=== PATIENT | female | born 1980 | race Caucasian/White ===

== ENCOUNTER 2017-04-24 15:07 | Emergency (ER) | payer OTHER ==
[2017-04-24] MEDS ORDERED: Zofran 4 MG/2 ML VIAL IV ONE (15:33)
[2017-04-24] MEDS ORDERED: Pepcid 20 MG VIAL IV ONE ×2 (15:33→15:42)
[2017-04-24] MEDS ORDERED: TORAdol 30 mg Injection IV ONE (15:33)
--- NOTE | 2017-04-24 15:33 | ERPHSYRPT ---
- History of Present Illness Time Seen by Provider: 04/24/17 15:29 Historian: patient Exam Limitations: no limitations Patient Subjective Stated Complaint: PT REPORTS RIGHT SIDED FLANK PAIN BEGINNING 3 DAYS AGO-REPROTS NAUSEA BUT DENIES VOMITING OR DIARRHEA-REPORTS FEVER OF 102 AT HOME-DENIES DIFFICULTY WITH URIANTION Triage Nursing Assessment: PT PINK WARM ET [id number] SOFT ET TENDER TO PALP- BOWEL SOUNDS PRESENT-NO REBOUND TENDERNESS NOTED AT THIS TIME-RESP EASY ET NONLABORED-PT AMBULATORY WITH NO DIFFICUTLY Physician History: The patient is a morbidly obese 36-year-old female who complains of worsening right lower quadrant abdominal pain for 3 days. She has nausea but no vomiting. She has no problems with urination. She's had a fever of 102. Her past medical history is significant for morbid obesity, chronic back pain, asthma, anxiety, and depression. Her surgical history is significant for cholecystectomy, , plantar fasciitis surgery, TL, and tonsillectomy. Timing/Duration: day(s) (3) Activities at Onset: none Quality: aching Abdominal Pain Onset Location: RLQ Pain Radiation: no radiation Severity of Pain-Max: moderate Severity of Pain-Current: moderate Modifying Factors: Improves With: analgesics, movement Associated Symptoms: nausea, No vomiting Previous symptoms: no prior history Allergies/Adverse Reactions: hydrocodone bitartrate [From Vicodin] Allergy (Intermediate, Verified 04/24/17 15:19) Rash venom-honey bee [bee venom (honey bee)] Allergy (Verified 04/24/17 15:19) Home Medications: Albuterol 8 gm Mdi Hfa [Ventolin Hfa MDI] 0 puff IH .PRN PRN 12/15/12 [ History] Oxycodone HCl/Acetaminophen [Percocet 10-325 mg Tablet] 1 each PO TID 12/15/12 [ History] Albuterol 2.5 mg/3 ml Neb [Proventil 2.5 mg/3 ml Neb] 2.5 mg IH .PRN 07/24 [History] Alprazolam 1 mg [Xanax 1 mg] 1 mg PO TID 07/24/16 [History] Bupropion HCl 150 mg Sr [Wellbutrin SR 150 MG] 150 mg PO BID 07/24/16 [ History] Cyclobenzaprine HCl 10 mg [Cyclobenzaprine 10 MG] 10 mg PO DAILY 07/24/16 [History] Ibuprofen 800 mg PO TID 07/24/16 [History] Loratadine 10 mg [Claritin 10 mg] 10 mg PO DAILY 07/24/16 [History] Hx Tetanus, Diphtheria Vaccination/Date Given: Yes Hx Influenza Vaccination/Date Given: No Hx Pneumococcal Vaccination/Date Given: No Immunizations Up to Date: Yes - Review of Systems Constitutional: No Fever, No Chills Eyes: No Symptoms Ears, Nose, & Throat: No Symptoms Respiratory: No Cough, No Dyspnea Cardiac: No Chest Pain, No Edema, No Syncope Abdominal/Gastrointestinal: Abdominal Pain, Nausea, No Vomiting, No Diarrhea Genitourinary Symptoms: No Dysuria Musculoskeletal: No Back Pain, No Neck Pain Skin: No Rash Neurological: No Symptoms Psychological: No Symptoms Endocrine: No Symptoms Hematologic/Lymphatic: No Symptoms Immunological/Allergic: No Symptoms All Other Systems: Reviewed and Negative - Past Medical History Pertinent Past Medical History: Yes Neurological History: No Pertinent History ENT History: No Pertinent History Cardiac History: Other Respiratory History: Asthma Endocrine Medical History: No Pertinent History Musculoskeletal History: Other GI Medical History: No Pertinent History History: No Pertinent History Psycho-Social History: Anxiety Female Reproductive Disorders: Other Other Medical History: irregular heart rate,back pain,sinus allergies, - Past Surgical History Past Surgical History: Yes Neuro Surgical History: No Pertinent History Cardiac: No Pertinent History Respiratory: No Pertinent History Gastrointestinal: Cholecystectomy Genitourinary: No Pertinent History Musculoskeletal: No Pertinent History Female Surgical History: Section Other Surgical History: CARPAL TUNNEL, FOOT SURG BILA, TUBES IN EARS,.TONSILS - Social History Smoking Status: Current every day smoker How long have you smoked: 10 years Exposure to second hand smoke: Yes Drug Use: none Patient Lives Alone: No - Female History Hx Last Menstrual Period: 3 WKS AGO Hx Now: No - Nursing Vital Signs Nursing Vital Signs: Initial Vital Signs Temperature 97.5 F 04/24/17 15:13 Pulse Rate 103 H 04/24/17 15:13 Respiratory Rate 20 04/24/17 15:13 Blood Pressure 125/78 04/24/17 15:13 O2 Sat by Pulse Oximetry 96 04/24/17 15:13 Pain Scale Pain Intensity 6 - Physical Exam General Appearance: no apparent distress, alert Eye Exam: PERRL/EOMI, eyes nml inspection Ears, Nose, Throat Exam: normal ENT inspection, pharynx normal, moist mucous membranes Neck Exam: normal inspection, non-tender, supple, full range of motion Respiratory Exam: normal breath sounds, lungs clear, No respiratory distress Cardiovascular Exam: regular rate/rhythm, normal heart sounds Gastrointestinal/Abdomen Exam: tenderness (RLQ), No rebound Pelvic Exam: not done Rectal Exam: not done Back Exam: normal inspection, normal range of motion, No CVA tenderness, No vertebral tenderness Extremity Exam: normal inspection, normal range of motion, pelvis stable Neurologic Exam: alert, oriented x 3, cooperative, normal mood/affect, nml cerebellar function, sensation nml, No motor deficits Skin Exam: normal color, warm, dry Lymphatic Exam: adenopathy SpO2 Interpretation: normal SpO2: 96 Oxygen Delivery: Room Air - Course EKG Interpreted by Me: RATE, Other (paced rhythm) Ordered Tests: Active Orders 24 hr Category Date Time Status IV Insertion STAT Care 04/24/17 15:33 Active CBC W DIFF Stat Lab 04/24/17 15:40 Completed CMP Stat Lab 04/24/17 15:40 Completed CULTURE,URINE Stat Lab 04/24/17 15:40 Received HCG QUALITATIVE,SERUM Stat Lab 04/24/17 15:40 Completed LIPASE Stat Lab 04/24/17 15:40 Completed Lactic Acid Stat Lab 04/24/17 15:33 Completed UA W/ MICROSCOPIC Stat Lab 04/24/17 15:40 Completed Medication Summary Discontinued Medications Generic Name Dose Route Start Last Admin Trade Name Terrance PRN Reason Stop Dose Admin Famotidine 20 mg 04/24/17 15:33 04/24/17 15:45 Pepcid 20 Mg Vial IV 04/24/17 15:34 20 mg STAT ONE Administration Famotidine Confirm 04/24/17 15:42 Pepcid 20 Mg Vial Administered 04/24/17 15:43 Dose 20 mg IV .STK-MED ONE Ketorolac Tromethamine 30 mg 04/24/17 15:33 04/24/17 15:47 Toradol 30 Mg Injection IV 04/24/17 15:34 Not Given STAT ONE Ketorolac Tromethamine Confirm 04/24/17 15:42 Toradol 30 Mg Injection Administered 04/24/17 15:43 Dose 30 mg .ROUTE .STK-MED ONE Ondansetron HCl 4 mg 04/24/17 15:33 04/24/17 15:43 Zofran 4 Mg/2 Ml Vial IV 04/24/17 15:34 4 mg STAT ONE Administration Ondansetron HCl Confirm 04/24/17 15:42 Zofran 4 Mg/2 Ml Vial Administered 04/24/17 15:43 Dose 4 mg .ROUTE .STK-MED ONE Lab/Rad Data: Laboratory Result Diagrams 04/24/17 15:40 04/24/17 15:40 Laboratory Results 04/24/17 04/24/17 04/24/17 Range/Units 15:40 15:40 15:40 WBC (4.0-10.5) K/mm3 RBC (4.1-5.4) M/mm3 Hgb (12.0-16.0) gm/dl Hct (35-47) % MCV (78-100) fl MCH (26-32) pg MCHC (32-36) g/dl RDW (11.5-14.0) % Plt Count (150-450) K/mm3 MPV (6-9.5) fl Gran % (36.0-66.0) % Lymphocytes % (24.0-44.0) % Monocytes % (0.0-12.0) % Eosinophils % (0.00-5.0) % Basophils % (0.0-0.4) % Basophils # (0-0.4) Sodium 140 (136-145) mEq/L Potassium 3.3 L (3.5-5.1) mEq/L Chloride 105 (98-107) mEq/L Carbon Dioxide 25.3 (21-32) mEq/L Anion Gap 13.1 (5-15) MEQ/L BUN 10 (9-20) mg/dL Creatinine 0.75 (0.55-1.30) mg/dl Estimated GFR > 60 ML/MIN Glucose 95 (70-110) MG/DL Lactic Acid (0.4-2.0) Calcium 9.2 (8.5-10.1) mg/dL Total Bilirubin 0.30 (0.2-1.0) mg/dL AST 18 (15-37) U/L ALT 27 (12-78) U/L Alkaline Phosphatase 65 (46-116) U/L Serum Total Protein 7.4 (6.4-8.2) gm/dL Albumin 3.9 (3.4-5.0) g/dL Lipase 89 (73-393) U/L Serum , Qual NEGATIVE (Negative) Ur Collection Type VOID Urine Color YELLOW (YELLOW) Urine Appearance HAZY (CLEAR) Urine pH 5.0 (5-6) Ur Specific [place] 1.030 (1.005-1.025) Urine Protein TRACE (Negative) Urine Ketones SMALL (NEGATIVE) Urine Blood 5-10 (0-5) Yousif/ul Urine Nitrite NEGATIVE (NEGATIVE) Urine Bilirubin NEGATIVE (NEGATIVE) Urine Urobilinogen NORMAL (0-1) mg/dL Ur Leukocyte Esterase TRACE (NEGATIVE) Urine Microscopic RBC 0-2 (0-2) /HPF Urine Microscopic WBC 5-10 (0-5) /HPF Ur Epithelial Cells PACKED (FEW) /HPF Urine Bacteria MODERATE (NEGATIVE) /HPF Urine Culture Reflexed YES (NO) Urine Glucose NEGATIVE (NEGATIVE) mg/dL Specimen Received 04/24/17 1600 04/24/17 04/24/17 Range/Units 15:40 15:33 WBC 11.1 H (4.0-10.5) K/mm3 RBC 5.42 H (4.1-5.4) M/mm3 Hgb 14.4 (12.0-16.0) gm/dl Hct 44.0 (35-47) % MCV 81.2 (78-100) fl MCH 26.5 (26-32) pg MCHC 32.7 (32-36) g/dl RDW 14.4 H (11.5-14.0) % Plt Count 421 (150-450) K/mm3 MPV 10.0 H (6-9.5) fl Gran % 67.9 H (36.0-66.0) % Lymphocytes % 23.8 L (24.0-44.0) % Monocytes % 6.0 (0.0-12.0) % Eosinophils % 2.0 (0.00-5.0) % Basophils % 0.3 (0.0-0.4) % Basophils # 0.03 (0-0.4) Sodium (136-145) mEq/L Potassium (3.5-5.1) mEq/L Chloride (98-107) mEq/L Carbon Dioxide (21-32) mEq/L Anion Gap (5-15) MEQ/L BUN (9-20) mg/dL Creatinine (0.55-1.30) mg/dl Estimated GFR ML/MIN Glucose (70-110) MG/DL Lactic Acid 1.1 (0.4-2.0) Calcium (8.5-10.1) mg/dL Total Bilirubin (0.2-1.0) mg/dL AST (15-37) U/L ALT (12-78) U/L Alkaline Phosphatase (46-116) U/L Serum Total Protein (6.4-8.2) gm/dL Albumin (3.4-5.0) g/dL Lipase (73-393) U/L Serum , Qual (Negative) Ur Collection Type Urine Color (YELLOW) Urine Appearance (CLEAR) Urine pH (5-6) Ur Specific [place] (1.005-1.025) Urine Protein (Negative) Urine Ketones (NEGATIVE) Urine Blood (0-5) Yousif/ul Urine Nitrite (NEGATIVE) Urine Bilirubin (NEGATIVE) Urine Urobilinogen (0-1) mg/dL Ur Leukocyte Esterase (NEGATIVE) Urine Microscopic RBC (0-2) /HPF Urine Microscopic WBC (0-5) /HPF Ur Epithelial Cells (FEW) /HPF Urine Bacteria (NEGATIVE) /HPF Urine Culture Reflexed (NO) Urine Glucose (NEGATIVE) mg/dL Specimen Received - Progress Progress: improved Counseled pt/family regarding: lab results, diagnosis, need for follow-up, rad results - Departure Time of Disposition: 16:49 Departure Disposition: Home Clinical Impression: UTI (urinary tract infection), Hypokalemia Condition: Stable Critical Care Time: No Referrals: MARKUS LUJAN [Primary Care Provider] - Additional Instructions: You have a UTI. You also have slightly low serum potassium. You were given Pepcid 20 mg, Toradol 30 mg, Zofran 4 mg, and Rocephin 1 g by IV. You were given potassium 20 mEq orally. Continue to take cephalexin 500 mg 4 times a day for 7 days. Follow-up as needed. Prescriptions: Cephalexin Mh 500 mg [Keflex 500 mg] 1 cap PO QID #28 capsule
[2017-04-24] MEDS ORDERED: TORAdol 30 mg Injection ONE (15:42)
[2017-04-24] MEDS ORDERED: Zofran 4 MG/2 ML VIAL ONE (15:42)
[2017-04-24 15:57] LABS: BASOPHIL % 0.3 % (0.0-0.4); Basophil (Absolute #) 0.03 (0-0.4); Eosinophil (Absolute #) 0.22 (0-0.5); Granulocyte Absolute (ANC) 7.52 (1.4-6.9); Granulocytes % 67.9 % (36.0-66.0); Hemoglobin 14.4 gm/dl (12.0-16.0); Lymphocyte (Absolute #) 2.63 (1.0-4.6); Lymphocytes % 23.8 % (24.0-44.0); Mean Cell Volume 81.2 fl (78-100); Mean Corpuscular Hgb Concent. 32.7 g/dl (32-36); Monocyte (Absolute #) 0.66 (0.0-1.3); Platelet Count 421 K/mm3 (150-450); Red Blood Count 5.42 M/mm3 (4.1-5.4); Red Cell Distribution Width 14.4 % (11.5-14.0); White Blood Count 11.1 K/mm3 (4.0-10.5)
[2017-04-24 16:12] LABS: Mean Corpuscular Hemoglobin 26.5 pg (26-32)
[2017-04-24 16:17] LABS: Appearance HAZY (CLEAR); Bilirubin NEGATIVE (NEGATIVE); Glucose NEGATIVE (NEGATIVE); Ketones SMALL (NEGATIVE); Leukocyte Esterase TRACE (NEGATIVE); Nitrite NEGATIVE (NEGATIVE); Protein,Urine Dip TRACE (Negative); Urobilinogen NORMAL mg/dL (0-1)
[2017-04-24 16:20] LABS: ALBUMIN 3.9 g/dL (3.4-5.0); ALKALINE PHOSPHATASE 65 U/L (46-116); ANION GAP 13.1 MEQ/L (5-15); BLOOD UREA NITROGEN 10 mg/dL (9-20); CHLORIDE 105 mEq/L (98-107); Calcium 9.2 mg/dL (8.5-10.1); Carbon Dioxide 25.3 mEq/L (21-32); Creatinine 1 0.75 mg/dl (0.55-1.30); EST GLOMERULAR FILTRATION RATE > 60 ML/MIN; Glucose 95 MG/DL (70-110); LIPASE 89 U/L (73-393); Potassium 3.3 mEq/L (3.5-5.1); SGOT/AST 18 U/L (15-37); SGPT/ALT 27 U/L (12-78); SODIUM 140 mEq/L (136-145); Total Protein 7.4 gm/dL (6.4-8.2)
[2017-04-24 16:27] LABS: Bacteria MODERATE /HPF (NEGATIVE); Epithelial Cells PACKED /HPF (FEW)
[2017-04-24] MEDS ORDERED: Klor Con 10 MEQ PO ONE ×2 (16:47→16:53)
[2017-04-24] MEDS ORDERED: ROCEPHIN 1 Gm-D5w 50 ml Bag** 1 G/50 ML IVPB IV STA (16:49)
[2017-04-24] MEDS ORDERED: ROCEPHIN 1 Gm-D5w 50 ml Bag** 1 G/50 ML IVPB IV ONE (16:53)
[2017-04-24 17:06] VITALS: BP 107/65; PULSE 82; O2SAT 99
== END 2017-04-24 17:54 | disposition home or self-care (01) ==
LOC: ED 15:07
DX: N39.0 Urinary tract infection, site not specified (principal); E87.6 Hypokalemia; F41.9 Anxiety disorder, unspecified; Z72.0 Tobacco use; Z79.899 Other long term (current) drug therapy; J45.909 Unspecified asthma, uncomplicated
CPT/HCPCS: 36000; 36415; 80053; 81000; 83605; 83690; 84703; 85025; 87086; 99284; J0696; J1885; J2405; A9270-GY

== ENCOUNTER 2017-05-12 17:34 | Emergency (ER) | payer OTHER ==
--- NOTE | 2017-05-12 18:03 | ERPHSYRPT ---
- History of Present Illness Historian: patient Exam Limitations: no limitations Patient Subjective Stated Complaint: Pt states "I am having lower right abdominal pain and it started a couple of weeks ago when I was diagnosed with a UTI. Keli Quan told me I need to come over to make sure I do not have appendicitis." Triage Nursing Assessment: Pt alert and oriented X 3, skin pwd. PT ambulates with an upright steady gait, able to speak in clear full sentences. right lower quadrant tender. Timing/Duration: week(s) (3), gradual onset, worse Activities at Onset: none Quality: sharpness Abdominal Pain Onset Location: RLQ Pain Radiation: no radiation Severity of Pain-Max: moderate Severity of Pain-Current: moderate Modifying Factors: Improves With: nothing Associated Symptoms: denies symptoms Previous symptoms: no prior history Hx Tetanus, Diphtheria Vaccination/Date Given: No Hx Influenza Vaccination/Date Given: No Hx Pneumococcal Vaccination/Date Given: No Immunizations Up to Date: Yes <NELLY MORA - Last Filed: 05/12/17 19:10> <FLACA RAHMAN - Last Filed: 05/12/17 20:11> - History of Present Illness Time Seen by Provider: 05/12/17 17:57 Physician History: The patient is a 36-year-old morbidly obese female who is sent over from [facility] where she was evaluated today for right lower quadrant pain. She was told to [facility] that she may have appendicitis and to go to the ER. She's had the abdominal pain on the right lower quadrant for about 3 weeks. I saw the patient on April 24 for the same complaint and at that time her urine had moderate white cells and bacteria. She was given Rocephin in the ER and a prescription for cephalexin. Today her right lower quadrant had increased so she went in to see [facility]. She denies nausea, vomiting, or diarrhea. She denies fever or chills. LMP was 2 days ago. Her past medical history is significant for asthma, anxiety, depression, morbid obesity, chronic back pain, cholecystectomy, ear tubes, tonsillectomy, and foot surgery. (NELLY MORA) Allergies/Adverse Reactions: hydrocodone bitartrate [From Vicodin] Allergy (Intermediate, Verified 04/24/17 15:19) Rash venom-honey bee [bee venom (honey bee)] Allergy (Verified 04/24/17 15:19) Home Medications: Albuterol 8 gm Mdi Hfa [Ventolin Hfa MDI] 0 puff IH .PRN PRN 12/15/12 [ History] Oxycodone HCl/Acetaminophen [Percocet 10-325 mg Tablet] 1 each PO TID 12/15/12 [ History] Albuterol 2.5 mg/3 ml Neb [Proventil 2.5 mg/3 ml Neb] 2.5 mg IH .PRN 07/24 [History] Alprazolam 1 mg [Xanax 1 mg] 1 mg PO TID 07/24/16 [History] Bupropion HCl 150 mg Sr [Wellbutrin SR 150 MG] 150 mg PO BID 07/24/16 [ History] Cyclobenzaprine HCl 10 mg [Cyclobenzaprine 10 MG] 10 mg PO DAILY 07/24/16 [History] Ibuprofen 800 mg PO TID 07/24/16 [History] Loratadine 10 mg [Claritin 10 mg] 10 mg PO DAILY 07/24/16 [History] - Review of Systems Constitutional: No Fever, No Chills Eyes: No Symptoms Ears, Nose, & Throat: No Symptoms Respiratory: No Cough, No Dyspnea Cardiac: No Chest Pain, No Edema, No Syncope Abdominal/Gastrointestinal: Abdominal Pain Genitourinary Symptoms: No Dysuria Musculoskeletal: No Back Pain, No Neck Pain Skin: No Rash Neurological: No Dizziness, No Focal Weakness, No Sensory Changes Psychological: No Symptoms Endocrine: No Symptoms Hematologic/Lymphatic: No Symptoms Immunological/Allergic: No Symptoms All Other Systems: Reviewed and Negative <NELLY MORA - Last Filed: 05/12/17 19:10> - Past Medical History Pertinent Past Medical History: Yes Neurological History: No Pertinent History ENT History: No Pertinent History Cardiac History: Other Respiratory History: Asthma Endocrine Medical History: No Pertinent History Musculoskeletal History: Other GI Medical History: No Pertinent History History: No Pertinent History Psycho-Social History: Anxiety Female Reproductive Disorders: Other Other Medical History: irregular heart rate,back pain,sinus allergies, - Past Surgical History Past Surgical History: Yes Neuro Surgical History: No Pertinent History Cardiac: No Pertinent History Respiratory: No Pertinent History Gastrointestinal: Cholecystectomy Genitourinary: No Pertinent History Musculoskeletal: No Pertinent History Female Surgical History: Section Other Surgical History: CARPAL TUNNEL, FOOT SURG BILA, TUBES IN EARS,.TONSILS - Social History Smoking Status: Current every day smoker How long have you smoked: 10 years Exposure to second hand smoke: Yes Drug Use: none Patient Lives Alone: No - Female History Hx Last Menstrual Period: 05/04/2017 Hx Now: No <NELLY MORA - Last Filed: 05/12/17 19:10> - Physical Exam General Appearance: no apparent distress (Pt is smiling and pleasant when I enter the room.), alert Eye Exam: PERRL/EOMI, eyes nml inspection Ears, Nose, Throat Exam: normal ENT inspection, pharynx normal, moist mucous membranes Neck Exam: normal inspection, non-tender, supple, full range of motion Respiratory Exam: normal breath sounds, lungs clear, No respiratory distress Cardiovascular Exam: regular rate/rhythm, normal heart sounds Gastrointestinal/Abdomen Exam: tenderness (Moderate pain upon palpation of RLQ. Psoas sign.), other (obese) Pelvic Exam: not done Rectal Exam: not done Back Exam: normal inspection, normal range of motion, No CVA tenderness, No vertebral tenderness Extremity Exam: normal inspection, normal range of motion, pelvis stable Neurologic Exam: alert, oriented x 3, cooperative, normal mood/affect, nml cerebellar function, sensation nml, No motor deficits Skin Exam: normal color, warm, dry SpO2 Interpretation: normal SpO2: 98 Oxygen Delivery: Room Air <NELLY MORA - Last Filed: 05/12/17 19:10> - Nursing Vital Signs Nursing Vital Signs: Initial Vital Signs Temperature 97.9 F 05/12/17 17:39 Pulse Rate 99 H 05/12/17 17:39 Respiratory Rate 18 05/12/17 17:39 Blood Pressure 128/81 05/12/17 17:39 O2 Sat by Pulse Oximetry 98 05/12/17 17:39 Pain Scale Pain Intensity 4 - Course Nursing assessment & vital signs reviewed: Yes <FLACA RAHMAN - Last Filed: 05/12/17 20:11> Ordered Tests: Active Orders 24 hr Category Date Time Status IV Insertion STAT Care 05/12/17 18:12 Active ABDOMEN AND PELVIS W/0 CONTRAS [CT] Stat Exams 05/12/17 18:13 Taken CBC W DIFF Stat Lab 05/12/17 18:05 Completed CMP Stat Lab 05/12/17 18:05 Completed HCG QUALITATIVE,SERUM Stat Lab 05/12/17 18:05 Completed LIPASE Stat Lab 05/12/17 18:05 Completed Lactic Acid Stat Lab 05/12/17 18:35 Results UA W/RFX UR CULTURE Stat Lab 05/12/17 18:50 Completed Medication Summary Generic Name Dose Route Start Last Admin Trade Name Terrance PRN Reason Stop Dose Admin Amoxicillin/Clavulanate Potassium 500 mg 05/12/17 20:03 Augmentin 500-125 Tablet PO 05/12/17 20:04 STAT ONE Discontinued Medications Generic Name Dose Route Start Last Admin Trade Name Fredelmar PRN Reason Stop Dose Admin Sodium Chloride 1,000 mls @ 999 mls/hr 05/12/17 18:14 05/12/17 18:25 Sodium Chloride 0.9% 1000 Ml IV 05/12/17 19:14 999 mls/hr .Q1H1M STA Administration Sodium Chloride Confirm 05/12/17 18:24 Sodium Chloride 0.9% 1000 Ml Administered 05/12/17 18:25 Dose 1,000 mls @ ud .ROUTE .STK-MED ONE Lab/Rad Data: Laboratory Result Diagrams 05/12/17 18:05 05/12/17 18:05 Laboratory Results 05/12/17 05/12/17 05/12/17 Range/Units 18:50 18:35 18:05 WBC (4.0-10.5) K/mm3 RBC (4.1-5.4) M/mm3 Hgb (12.0-16.0) gm/dl Hct (35-47) % MCV (78-100) fl MCH (26-32) pg MCHC (32-36) g/dl RDW (11.5-14.0) % Plt Count (150-450) K/mm3 MPV (6-9.5) fl Gran % (36.0-66.0) % Lymphocytes % (24.0-44.0) % Monocytes % (0.0-12.0) % Eosinophils % (0.00-5.0) % Basophils % (0.0-0.4) % Basophils # (0-0.4) Sodium (136-145) mEq/L Potassium (3.5-5.1) mEq/L Chloride (98-107) mEq/L Carbon Dioxide (21-32) mEq/L Anion Gap (5-15) MEQ/L BUN (9-20) mg/dL Creatinine (0.55-1.30) mg/dl Estimated GFR ML/MIN Glucose (70-110) MG/DL Lactic Acid 2.0 (0.4-2.0) Calcium (8.5-10.1) mg/dL Total Bilirubin (0.2-1.0) mg/dL AST (15-37) U/L ALT (12-78) U/L Alkaline Phosphatase (46-116) U/L Serum Total Protein (6.4-8.2) gm/dL Albumin (3.4-5.0) g/dL Lipase (73-393) U/L Serum , Qual NEGATIVE (Negative) Ur Collection Type CCMS Urine Color YELLOW (YELLOW) Urine Appearance CLEAR (CLEAR) Urine pH 5.0 (5-6) Ur Specific [place] 1.015 (1.005-1.025) Urine Protein NEGATIVE (Negative) Urine Ketones NEGATIVE (NEGATIVE) Urine Blood NEGATIVE (0-5) Yousif/ul Urine Nitrite NEGATIVE (NEGATIVE) Urine Bilirubin NEGATIVE (NEGATIVE) Urine Urobilinogen NORMAL (0-1) mg/dL Ur Leukocyte Esterase NEGATIVE (NEGATIVE) Urine Culture Reflexed NO (NO) Urine Glucose NEGATIVE (NEGATIVE) mg/dL Specimen Received 05-12-17192705/12/17 05/12/17 Range/Units 18:05 18:05 WBC 11.1 H (4.0-10.5) K/mm3 RBC 5.26 (4.1-5.4) M/mm3 Hgb 13.9 (12.0-16.0) gm/dl Hct 42.9 (35-47) % MCV 81.6 (78-100) fl MCH 26.4 (26-32) pg MCHC 32.4 (32-36) g/dl RDW 14.1 H (11.5-14.0) % Plt Count 401 (150-450) K/mm3 MPV 10.6 H (6-9.5) fl Gran % 64.5 (36.0-66.0) % Lymphocytes % 27.2 (24.0-44.0) % Monocytes % 4.9 (0.0-12.0) % Eosinophils % 3.1 (0.00-5.0) % Basophils % 0.3 (0.0-0.4) % Basophils # 0.03 (0-0.4) Sodium 142 (136-145) mEq/L Potassium 3.3 L (3.5-5.1) mEq/L Chloride 105 (98-107) mEq/L Carbon Dioxide 24.4 (21-32) mEq/L Anion Gap 15.4 H (5-15) MEQ/L BUN 9 (9-20) mg/dL Creatinine 0.71 (0.55-1.30) mg/dl Estimated GFR > 60 ML/MIN Glucose 103 (70-110) MG/DL Lactic Acid (0.4-2.0) Calcium 9.0 (8.5-10.1) mg/dL Total Bilirubin 0.20 (0.2-1.0) mg/dL AST 18 (15-37) U/L ALT 23 (12-78) U/L Alkaline Phosphatase 56 (46-116) U/L Serum Total Protein 7.3 (6.4-8.2) gm/dL Albumin 3.9 (3.4-5.0) g/dL Lipase 110 (73-393) U/L Serum , Qual (Negative) Ur Collection Type Urine Color (YELLOW) Urine Appearance (CLEAR) Urine pH (5-6) Ur Specific [place] (1.005-1.025) Urine Protein (Negative) Urine Ketones (NEGATIVE) Urine Blood (0-5) Yousif/ul Urine Nitrite (NEGATIVE) Urine Bilirubin (NEGATIVE) Urine Urobilinogen (0-1) mg/dL Ur Leukocyte Esterase (NEGATIVE) Urine Culture Reflexed (NO) Urine Glucose (NEGATIVE) mg/dL Specimen Received <NELLY MORA - Last Filed: 05/12/17 19:10> - Progress Progress: improved <FLACA RAHMAN - Last Filed: 05/12/17 20:11> - Progress Progress Note: 05/12/17 19:10 Pt care discussed and care transferred to Dr Rahman at 19:00. (NELLY MORA) 05/12/17 20:04 Please see dictation by Dr. Mora This is a 36-year-old white female initially seen by Dr. Mora patient was seen [address] Mora with complaint of abdominal pain diagnosed with a UTI placed on Keflex. She states presented to her of family doctor this afternoon with same complaint. Patient had a clean urine and was told to present to the emergency room Patient states she has right lower quadrant abdominal pain she has no vomiting no diarrhea no fevers Patient's labs show a white count of 11.1 hemoglobin 13.9 hematocrit 42.9 chemistry is essentially normal potassium is 3.3 anion gap is 15.4 urinalysis is unremarkable patient has had a CT of her abdomen which shows a normal appendix, mildly scattered colonic diverticulosis and mild scattered fecal stasis remaining abdomen and pelvis are negative. On physical examination HEENT within normal limits. Neck is supple full range of motion. Lungs are clear. Heart regular rate and rhythm without murmur. Abdomen soft mild right lower quadrant tenderness nondistended positive bowel sounds. No rebound no masses. Extremities full range of motion pulse equal symmetrical 2 over 4. Neuro cranial nerves II through XII are intact DTRs symmetrical 2 over 4 Genevieve Coma Scale is 15. Impression abdominal pain. 2 diverticulosis. 3 mild [address] Plan Will place patient on Augmentin 500 mg orally 3 times a day for 7 days. Will have patient go to clear fluids 24-48 hours if abdominal pain. Patient to follow-up with Isaura Quan Tylenol every 4 hours as needed for pain. (FLACA RAHMAN) <NELLY MORA - Last Filed: 05/12/17 19:10> - Departure Time of Disposition: 20:08 Departure Disposition: Home Critical Care Time: No <FLACA RAHMAN - Last Filed: 05/12/17 20:11> - Departure Clinical Impression: Abdominal pain Qualifiers: Abdominal location: right lower quadrant Qualified Code(s): R10.31 - Right lower quadrant pain Diverticulosis Qualifiers: Diverticulosis site: unspecified location Diverticulosis bleeding: diverticulosis without bleeding Qualified Code(s): K57.90 - Diverticulosis of intestine, part unspecified, without perforation or abscess without bleeding Constipation Qualifiers: Constipation type: unspecified constipation type Qualified Code(s): K59.00 - Constipation, unspecified Condition: Fair Referrals: MARKUS LUJAN [Primary Care Provider] - Additional Instructions: Return home. Plenty of fluids clear fluids only 24-48 hours of abdominal pain. Augmentin 500 mg orally 3 times a day for 7 days. Tylenol every 4 hours as needed for pain. Follow-up with your family doctor. Return for acute distress or for severe symptoms. Prescriptions: Amox Tr/Potass Clav. 500 mg [Augmentin 500-125 Tablet] 500 mg PO TID #21 tablet
[2017-05-12] MEDS ORDERED: Sodium Chloride 0.9% 1000 ML 1,000 ML IV STA (18:14)
[2017-05-12] MEDS ORDERED: Sodium Chloride 0.9% 1000 ML 1,000 ML ONE (18:24)
[2017-05-12 18:49] LABS: BASOPHIL % 0.3 % (0.0-0.4); Basophil (Absolute #) 0.03 (0-0.4); Eosinophil % 3.1 % (0.00-5.0); Eosinophil (Absolute #) 0.34 (0-0.5); Granulocyte Absolute (ANC) 7.17 (1.4-6.9); Granulocytes % 64.5 % (36.0-66.0); Hematocrit 42.9 % (35-47); Hemoglobin 13.9 gm/dl (12.0-16.0); Lymphocyte (Absolute #) 3.03 (1.0-4.6); Lymphocytes % 27.2 % (24.0-44.0); Mean Cell Volume 81.6 fl (78-100); Mean Corpuscular Hemoglobin 26.4 pg (26-32); Mean Corpuscular Hgb Concent. 32.4 g/dl (32-36); Mean Platelet Volume 10.6 fl (6-9.5); Monocyte (Absolute #) 0.55 (0.0-1.3); Monocytes % 4.9 % (0.0-12.0); Platelet Count 401 K/mm3 (150-450); Red Blood Count 5.26 M/mm3 (4.1-5.4); Red Cell Distribution Width 14.1 % (11.5-14.0); White Blood Count 11.1 K/mm3 (4.0-10.5)
[2017-05-12 19:10] LABS: ALBUMIN 3.9 g/dL (3.4-5.0); ALKALINE PHOSPHATASE 56 U/L (46-116); ANION GAP 15.4 MEQ/L (5-15); BLOOD UREA NITROGEN 9 mg/dL (9-20); CHLORIDE 105 mEq/L (98-107); Carbon Dioxide 24.4 mEq/L (21-32); Creatinine 1 0.71 mg/dl (0.55-1.30); EST GLOMERULAR FILTRATION RATE > 60 ML/MIN; Glucose 103 MG/DL (70-110); LIPASE 110 U/L (73-393); Potassium 3.3 mEq/L (3.5-5.1); SGOT/AST 18 U/L (15-37); SGPT/ALT 23 U/L (12-78); SODIUM 142 mEq/L (136-145); Total Protein 7.3 gm/dL (6.4-8.2)
[2017-05-12 19:28] LABS: Appearance CLEAR (CLEAR); Bilirubin NEGATIVE (NEGATIVE); Blood NEGATIVE Ery/ul (0-5); Glucose NEGATIVE (NEGATIVE); Ketones NEGATIVE (NEGATIVE); Leukocyte Esterase NEGATIVE (NEGATIVE); Nitrite NEGATIVE (NEGATIVE); Protein,Urine Dip NEGATIVE (Negative); Specific Gravity 1.015 (1.005-1.025); Urobilinogen NORMAL mg/dL (0-1)
[2017-05-12 19:55] VITALS: BP 92/53; PULSE 82; O2SAT 100
[2017-05-12] MEDS ORDERED: Augmentin 500-125 Tablet PO ONE (20:03)
[2017-05-12] MEDS ORDERED: Augmentin 500-125 Tablet ONE (20:15)
--- NOTE | 2017-05-13 09:05 | XRAY ---
Indication: Right lower quadrant pain. Multiple contiguous axial images obtained through the abdomen and pelvis without contrast as ordered. Comparison: December 15, 2012. Lung bases are essentially clear. Heart is not enlarged. Stomach is moderately distended with food. Noncontrasted stomach and bowel loops appear nonobstructed. Normal appendix. No free fluid/air. Minimal sigmoid diverticulosis without diverticulitis. Mild fatty liver. Spleen is borderline enlarged measuring 12.7 cm in greatest axial dimension. Previous cholecystectomy. Remaining liver, pancreas, spleen, adrenal glands, kidneys, ureters, bladder, uterus, and aorta appear unremarkable for noncontrast exam. Osseous structures intact with mild degenerative changes throughout the spine. Impression: 1. Minimal sigmoid diverticulosis without diverticulitis. 2. Splenomegaly. 3. No acute intra-abdominal/pelvic abnormalities on this noncontrast exam. CT DI 23.68
== END 2017-05-12 20:20 | disposition home or self-care (01) ==
LOC: ED 17:34
DX: R10.31 Right lower quadrant pain (principal); K57.90 Diverticulosis of intestine, part unspecified, without perforation or abscess without bleeding; K59.00 Constipation, unspecified; Z79.899 Other long term (current) drug therapy; Z79.891 Long term (current) use of opiate analgesic
CPT/HCPCS: 36000; 36415; 74176; 80053; 81000; 81002; 83605; 83690; 84703; 85025; 96360; 99283; 99284; A9270-GY

== ENCOUNTER 2018-09-12 11:50 | Emergency (ER) | payer OTHER ==
--- NOTE | 2018-09-12 12:09 | ERPHSYRPT ---
- History of Present Illness Time Seen by Provider: 09/12/18 12:07 Historian: patient Physician History: mild right flank ache pain today, hx renal stones, no injury, no fever, pt refused pain med, no NV, no blood in stool, +hx diverticular dis Allergies/Adverse Reactions: hydrocodone bitartrate [From Vicodin] Allergy (Intermediate, Verified 09/12/18 12:11) Rash venom-honey bee [bee venom (honey bee)] Allergy (Verified 09/12/18 12:11) Home Medications: Albuterol 8 gm Mdi Hfa [Ventolin Hfa MDI] 0 puff IH .PRN PRN 12/15/12 [ History] Oxycodone HCl/Acetaminophen [Percocet 10-325 mg Tablet] 1 each PO TID 12/15/12 [ History] Albuterol 2.5 mg/3 ml Neb [Proventil 2.5 mg/3 ml Neb] 2.5 mg IH .PRN 07/24 [History] Bupropion HCl 150 mg Sr [Wellbutrin SR 150 MG] 200 mg PO BID 07/24/16 [ History] Cyclobenzaprine HCl 10 mg [Cyclobenzaprine 10 MG] 10 mg PO DAILY 07/24/16 [History] Ibuprofen 800 mg PO TID 07/24/16 [History] Loratadine 10 mg [Claritin 10 mg] 10 mg PO DAILY 07/24/16 [History] Ergocalciferol (Vitamin D2) [Vitamin D2] 50,000 units PO WEEKLY 09/12/18 [ History] Fluticasone Propionate [Flonase NASAL] 1 ea IH DAILY 09/12/18 [History] Omeprazole 40 mg PO DAILY 09/12/18 [History] hydrOXYzine HCl [Hydroxyzine HCl] 10 mg PO TIDPRN 09/12/18 [History] Hx Tetanus, Diphtheria Vaccination/Date Given: No Hx Influenza Vaccination/Date Given: No Hx Pneumococcal Vaccination/Date Given: No - Review of Systems Constitutional: No Fever Eyes: No Vision Changes Ears, Nose, & Throat: No Nose Congestion Respiratory: No Dyspnea Cardiac: No Chest Pain Abdominal/Gastrointestinal: Abdominal Pain, No Vomiting, No Hematochezia Genitourinary Symptoms: No Dysuria Musculoskeletal: No Back Pain Skin: No Rash Neurological: No Dizziness - Past Medical History Pertinent Past Medical History: Yes Neurological History: No Pertinent History ENT History: No Pertinent History Cardiac History: Other Respiratory History: Asthma Endocrine Medical History: No Pertinent History Musculoskeletal History: Other GI Medical History: No Pertinent History History: No Pertinent History Psycho-Social History: Anxiety Female Reproductive Disorders: Other Other Medical History: irregular heart rate,back pain,sinus allergies, - Past Surgical History Past Surgical History: Yes Neuro Surgical History: No Pertinent History Cardiac: No Pertinent History Respiratory: No Pertinent History Gastrointestinal: Cholecystectomy Genitourinary: No Pertinent History Musculoskeletal: No Pertinent History Female Surgical History: Section Other Surgical History: CARPAL TUNNEL, FOOT SURG BILA, TUBES IN EARS,.TONSILS - Social History Smoking Status: Current every day smoker How long have you smoked: 10 years Exposure to second hand smoke: Yes Drug Use: none Patient Lives Alone: No - Nursing Vital Signs Nursing Vital Signs: Initial Vital Signs Temperature 97.9 F 09/12/18 12:03 Pulse Rate 82 09/12/18 12:03 Respiratory Rate 16 09/12/18 12:03 Blood Pressure 132/77 09/12/18 12:03 O2 Sat by Pulse Oximetry 96 09/12/18 12:03 Pain Scale Pain Intensity 0 - Physical Exam General Appearance: no apparent distress Eye Exam: eyes nml inspection Ears, Nose, Throat Exam: moist mucous membranes Neck Exam: normal inspection Respiratory Exam: normal breath sounds Cardiovascular Exam: regular rate/rhythm Gastrointestinal/Abdomen Exam: soft, tenderness, No rebound Back Exam: CVA tenderness Extremity Exam: normal inspection Neurologic Exam: alert, oriented x 3, cooperative Skin Exam: normal color, warm, dry - Course Nursing assessment & vital signs reviewed: Yes - CT Exams Abdomen/Pelvis CT Interpretation: Discussed w/radiologist, No appendicitis - Radiology Ultrasound Exam Pelvis Ultrasound: discussed w/radiologist, Other (complex ovarian cyst, no torsion) Ordered Tests: Active Orders 24 hr Category Date Time Status ABDOMEN AND PELVIS W/0 CONTRAS [CT] Stat Exams 09/12/18 13:06 Taken PELVIS TRANS VAGINAL [US] Stat Exams 09/12/18 15:57 Taken CBC W DIFF Stat Lab 09/12/18 12:25 Completed CMP Stat Lab 09/12/18 12:25 Completed CULTURE,URINE Stat Lab 09/12/18 12:35 Received HCG QUALITATIVE,SERUM Stat Lab 09/12/18 12:25 Completed LIPASE Stat Lab 09/12/18 12:25 Completed UA W/RFX UR CULTURE Stat Lab 09/12/18 12:35 Completed Lab/Rad Data: Laboratory Result Diagrams 09/12/18 12:25 09/12/18 12:25 Laboratory Results 09/12/18 09/12/18 09/12/18 Range/Units 12:35 12: 12:25 WBC (4.0-10.5) K/mm3 RBC (4.1-5.4) M/mm3 Hgb (12.0-16.0) gm/dl Hct (35-47) % MCV (78-100) fl MCH (26-32) pg MCHC (32-36) g/dl RDW (11.5-14.0) % Plt Count (150-450) K/mm3 MPV (6-9.5) fl Gran % (36.0-66.0) % Eos # (Auto) (0-0.5) Absolute Lymphs (auto) (1.0-4.6) Absolute Monos (auto) (0.0-1.3) Lymphocytes % (24.0-44.0) % Monocytes % (0.0-12.0) % Eosinophils % (0.00-5.0) % Basophils % (0.0-0.4) % Absolute Granulocytes (1.4-6.9) Basophils # (0-0.4) Sodium 140 (137-145) mmol/L Potassium 3.6 (3.5-5.1) mmol/L Chloride 109 H (98-107) mmol/L Carbon Dioxide 20 L (22-30) mmol/L Anion Gap 13.8 (5-15) MEQ/L BUN 9 (7-17) mg/dL Creatinine 0.56 (0.52-1.04) mg/dL Estimated GFR > 60.0 ML/MIN Glucose 104 (74-106) mg/dL Calcium 9.2 (8.4-10.2) mg/dL Total Bilirubin 0.50 (0.2-1.3) mg/dL AST 41 H (14-36) U/L ALT 38 H (0-35) U/L Alkaline Phosphatase 72 (38-126) U/L Serum Total Protein 7.2 (6.3-8.2) g/dL Albumin 4.0 (3.5-5.0) g/dL Lipase 39 (23-300) U/L Serum , Qual NEGATIVE (Negative) Urine Color [place] (YELLOW) Urine Appearance CLOUDY (CLEAR) Urine pH 5.0 (5-6) Ur Specific [place] 1.026 (1.005-1.025) Urine Protein 30 (Negative) Urine Ketones SMALL (NEGATIVE) Urine Blood NEGATIVE (0-5) Yousif/ul Urine Nitrite NEGATIVE (NEGATIVE) Urine Bilirubin NEGATIVE (NEGATIVE) Urine Urobilinogen NEGATIVE (0-1) mg/dL Ur Leukocyte Esterase TRACE (NEGATIVE) Urine WBC (Auto) 6-10 (0-5) /HPF Urine RBC (Auto) 3-5 (0-2) /HPF U Hyaline Cast (Auto) 0-2 (0-2) /LPF U Epithel Cells (Auto) MODERATE (FEW) /HPF Urine Bacteria (Auto) FEW (NEGATIVE) /HPF Urine Mucus (Auto) SLIGHT (NEGATIVE) /HPF Urine Culture Reflexed YES (NO) Urine Glucose NEGATIVE (NEGATIVE) mg/dL 09/12/18 Range/Units 12:25 WBC 6.6 (4.0-10.5) K/mm3 RBC 5.52 H (4.1-5.4) M/mm3 Hgb 14.5 (12.0-16.0) gm/dl Hct 44.2 (35-47) % MCV 80.1 (78-100) fl MCH 26.2 (26-32) pg MCHC 32.8 (32-36) g/dl RDW 15.2 H (11.5-14.0) % Plt Count 374 (150-450) K/mm3 MPV 10.1 H (6-9.5) fl Gran % 69.7 H (36.0-66.0) % Eos # (Auto) 0.10 (0-0.5) Absolute Lymphs (auto) 1.36 (1.0-4.6) Absolute Monos (auto) 0.50 (0.0-1.3) Lymphocytes % 20.7 L (24.0-44.0) % Monocytes % 7.6 (0.0-12.0) % Eosinophils % 1.5 (0.00-5.0) % Basophils % 0.5 (0.0-0.4) % Absolute Granulocytes 4.58 (1.4-6.9) Basophils # 0.03 (0-0.4) Sodium (137-145) mmol/L Potassium (3.5-5.1) mmol/L Chloride (98-107) mmol/L Carbon Dioxide (22-30) mmol/L Anion Gap (5-15) MEQ/L BUN (7-17) mg/dL Creatinine (0.52-1.04) mg/dL Estimated GFR ML/MIN Glucose (74-106) mg/dL Calcium (8.4-10.2) mg/dL Total Bilirubin (0.2-1.3) mg/dL AST (14-36) U/L ALT (0-35) U/L Alkaline Phosphatase (38-126) U/L Serum Total Protein (6.3-8.2) g/dL Albumin (3.5-5.0) g/dL Lipase (23-300) U/L Serum , Qual (Negative) Urine Color (YELLOW) Urine Appearance (CLEAR) Urine pH (5-6) Ur Specific [place] (1.005-1.025) Urine Protein (Negative) Urine Ketones (NEGATIVE) Urine Blood (0-5) Yousif/ul Urine Nitrite (NEGATIVE) Urine Bilirubin (NEGATIVE) Urine Urobilinogen (0-1) mg/dL Ur Leukocyte Esterase (NEGATIVE) Urine WBC (Auto) (0-5) /HPF Urine RBC (Auto) (0-2) /HPF U Hyaline Cast (Auto) (0-2) /LPF U Epithel Cells (Auto) (FEW) /HPF Urine Bacteria (Auto) (NEGATIVE) /HPF Urine Mucus (Auto) (NEGATIVE) /HPF Urine Culture Reflexed (NO) Urine Glucose (NEGATIVE) mg/dL - Progress Progress: unchanged Progress Note: 09/12/18 18:22 differential d/w pt as cancer, see your doctor, return if worse, [place] Counseled pt/family regarding: lab results, diagnosis, need for follow-up, rad results - Departure Departure Disposition: Home Clinical Impression: Ovarian cyst Qualifiers: Laterality: left Qualified Code(s): N83.202 - Unspecified ovarian cyst, left side Condition: Stable Critical Care Time: No Referrals: DAVID PANDEY [Primary Care Provider] - Instructions: Flank Pain
[2018-09-12 12:35] LABS: BASOPHIL % 0.5 % (0.0-0.4); Basophil (Absolute #) 0.03 (0-0.4); Eosinophil % 1.5 % (0.00-5.0); Granulocyte Absolute (ANC) 4.58 (1.4-6.9); Granulocytes % 69.7 % (36.0-66.0); Hematocrit 44.2 % (35-47); Hemoglobin 14.5 gm/dl (12.0-16.0); Lymphocyte (Absolute #) 1.36 (1.0-4.6); Lymphocytes % 20.7 % (24.0-44.0); Mean Cell Volume 80.1 fl (78-100); Mean Corpuscular Hgb Concent. 32.8 g/dl (32-36); Mean Platelet Volume 10.1 fl (6-9.5); Monocytes % 7.6 % (0.0-12.0); Platelet Count 374 K/mm3 (150-450); Red Blood Count 5.52 M/mm3 (4.1-5.4); Red Cell Distribution Width 15.2 % (11.5-14.0); White Blood Count 6.6 K/mm3 (4.0-10.5)
[2018-09-12 12:39] LABS: Mean Corpuscular Hemoglobin 26.2 pg (26-32)
[2018-09-12 12:44] LABS: ALKALINE PHOSPHATASE 72 U/L (38-126); ANION GAP 13.8 MEQ/L (5-15); BLOOD UREA NITROGEN 9 mg/dL (7-17); CHLORIDE 109 mmol/L (98-107); Calcium 9.2 mg/dL (8.4-10.2); Carbon Dioxide 20 mmol/L (22-30); Creatinine 1 0.56 mg/dL (0.52-1.04); Glucose 104 mg/dL (74-106); LIPASE 39 U/L (23-300); Potassium 3.6 mmol/L (3.5-5.1); SGOT/AST 41 U/L (14-36); SGPT/ALT 38 U/L (0-35); SODIUM 140 mmol/L (137-145); Total Protein 7.2 g/dL (6.3-8.2)
[2018-09-12 12:58] LABS: Appearance CLOUDY (CLEAR); Bacteria FEW /HPF (NEGATIVE); Bilirubin NEGATIVE (NEGATIVE); Blood NEGATIVE Ery/ul (0-5); Epithelial Cells MODERATE /HPF (FEW); Glucose NEGATIVE (NEGATIVE); Hyaline Casts 0-2 /LPF (0-2); Ketones SMALL (NEGATIVE); Leukocyte Esterase TRACE (NEGATIVE); Mucus SLIGHT /HPF (NEGATIVE); Nitrite NEGATIVE (NEGATIVE); Protein,Urine Dip 30 (Negative); Specific Gravity 1.026 (1.005-1.025); Urobilinogen NEGATIVE mg/dL (0-1)
[2018-09-12 16:18] VITALS: BP 114/75
[2018-09-12 18:12] VITALS: PULSE 78; O2SAT 98
--- NOTE | 2018-09-12 21:44 | XRAY ---
Indication: Right flank pain. Multiple contiguous axial images obtained through the abdomen and pelvis without contrast as ordered. Comparison: May 12, 2017. Lung bases remain clear. Heart is not enlarged. Noncontrasted stomach and bowel loops appear nonobstructed. Normal appendix. New 4.3 cm left ovary cyst with tiny pelvic free fluid. No free air. Again fatty liver, 13.6 cm splenomegaly, and cholecystectomy. Remaining liver, pancreas, spleen, adrenal glands, kidneys, ureters, bladder, uterus, and aorta appear unremarkable for noncontrast exam. Osseous structures intact again with mild degenerative changes throughout the spine. Impression: 1. New 4.3 cm left ovary cyst with free fluid. Pelvic sonogram may yield further information if clinically warranted. 2. Again incidental splenomegaly and fatty liver. Comment: Preliminary interpretation was made by [facility]. No discrepancy. CTDI 35.17
--- NOTE | 2018-09-12 21:48 | XRAY ---
Indication: Right lower quadrant pain. Two-dimensional transvaginal pelvic sonogram performed. Comparison: May 26, 2017. Uterus again anteverted today measuring 7.1 x 3.5 x 4.4 cm. Fundus of the uterus demonstrates 2 new subcentimeter anechoic cysts, largest 7 mm. Endometrial stripe measures 6 mm. No new major cavity mass or fluid collection. Right ovary measures 3.1 x 2.0 x 2.8 cm and the left measures 4.6 x 3.7 x 4.4 cm. Normal perfusion bilaterally. Left ovary demonstrates a 3.7 x 3.5 x 3.2 cm heterogeneous cyst, possible hemorrhagic cyst versus endometrioma. Tiny cul-de-sac fluid. Impression: 1. New subcentimeter uterine cysts. 2. New 3.7 x 3.5 x 3.2 cm left ovary heterogeneous cysts, possible hemorrhagic versus endometrioma. Recommend follow-up following at least 2 menstrual cycles. 3. Negative for torsion. Comment: Preliminary report was given.
== END 2018-09-12 18:42 | disposition home or self-care (01) ==
LOC: ED 11:50
DX: N83.202 Unspecified ovarian cyst, left side (principal); Z79.899 Other long term (current) drug therapy
CPT/HCPCS: 36415; 74176; 76830; 80053; 81001; 81025; 83690; 85025; 87086; 99284

== ENCOUNTER 2019-06-09 03:40 | Emergency (ER) | payer OTHER ==
[2019-06-09] MEDS ORDERED: TORAdol 30 mg Injection IM ONE (04:13)
--- NOTE | 2019-06-09 04:13 | ERPHSYRPT ---
- History of Present Illness Time Seen by Provider: 06/09/19 03:50 Patient Subjective Stated Complaint: pt states, "I was walking down the steps outside and I heard and felt a pop in my knee". Triage Nursing Assessment: PT C/O RT KNEE PAIN, MORE POSTERIORLY. PT STATES, " I WAS WALKING DOWN SOME STEPS OUTSIDE AND I HEARD AND FELT A POP IN THE BACK OF MY KNEE". NO BRUISING OR EDEMA NOTED. Physician History: Patient is a 38-year-old white female who has a history of severe osteoarthritis who was having some pain with her right knee and while walking down some steps earlier tonight developed a pop and a pain which nearly caused her to fall the pop and the pain was felt in the back of the knee. She had taken ibuprofen 800 and Percocet 10 prior to arrival. However despite the medication she was unable to sleep. Method of Injury: unknown Occurred: just prior to arrival Quality: sharpness, throbbing Severity of Pain-Max: severe Severity of Pain-Current: severe Lower Extremities Pain: knee: right (Emanation of the knee shows what appears to be an effusion with palpation. Addition there is no evidence of quadriceps tendon malfunction she is able to raise the leg off the bed she is able to bend it slightly however any movement or stressing causes severe pain. Full pulses are intact) Modifying Factors: Improves With: movement Associated Symptoms: popping sensation Allergies/Adverse Reactions: hydrocodone bitartrate [From Vicodin] Allergy (Intermediate, Verified 06/09/19 04:05) Rash venom-honey bee [bee venom (honey bee)] Allergy (Verified 06/09/19 04:05) Home Medications: Albuterol 8 gm Mdi Hfa [Ventolin Hfa MDI] 0 puff IH .PRN PRN 12/15/12 [ History] Oxycodone HCl/Acetaminophen [Percocet 10-325 mg Tablet] 1 each PO TID 12/15/12 [ History] Albuterol 2.5 mg/3 ml Neb [Proventil 2.5 mg/3 ml Neb] 2.5 mg IH .PRN 07/24 [History] Bupropion HCl 150 mg Sr [Wellbutrin SR 150 MG] 200 mg PO BID 07/24/16 [ History] Cyclobenzaprine HCl 10 mg [Cyclobenzaprine 10 MG] 10 mg PO DAILY 07/24/16 [History] Ibuprofen 800 mg PO TID 07/24/16 [History] Loratadine 10 mg [Claritin 10 mg] 10 mg PO DAILY 07/24/16 [History] Ergocalciferol (Vitamin D2) [Vitamin D2] 50,000 units PO WEEKLY 09/12/18 [ History] Fluticasone Propionate [Flonase NASAL] 1 ea IH DAILY 09/12/18 [History] Omeprazole 40 mg PO DAILY 09/12/18 [History] hydrOXYzine HCL [Hydroxyzine HCl] 10 mg PO TIDPRN 09/12/18 [History] Famotidine 20 mg [Pepcid 20 MG] 20 mg PO DAILY 06/09/19 [History] Hx Tetanus, Diphtheria Vaccination/Date Given: Yes Hx Influenza Vaccination/Date Given: No Hx Pneumococcal Vaccination/Date Given: No Immunizations Up to Date: Yes - Review of Systems Constitutional: No Fever, No Chills Eyes: No Symptoms Ears, Nose, & Throat: No Symptoms Respiratory: No Cough, No Dyspnea Cardiac: No Chest Pain, No Edema, No Syncope Abdominal/Gastrointestinal: No Abdominal Pain, No Nausea, No Vomiting, No Diarrhea Genitourinary Symptoms: No Dysuria Musculoskeletal: Joint Pain, Joint Swelling, No Back Pain, No Neck Pain Skin: No Rash Neurological: No Dizziness, No Focal Weakness, No Sensory Changes Psychological: No Symptoms Endocrine: No Symptoms All Other Systems: Reviewed and Negative - Past Medical History Pertinent Past Medical History: Yes Neurological History: No Pertinent History ENT History: No Pertinent History Cardiac History: Other Respiratory History: Asthma Endocrine Medical History: No Pertinent History Musculoskeletal History: Other GI Medical History: No Pertinent History History: No Pertinent History Psycho-Social History: Anxiety, Depression Female Reproductive Disorders: Other Other Medical History: irregular heart rate,back pain,sinus allergies, - Past Surgical History Past Surgical History: Yes Neuro Surgical History: No Pertinent History Cardiac: No Pertinent History Respiratory: No Pertinent History Gastrointestinal: Cholecystectomy Genitourinary: No Pertinent History Musculoskeletal: No Pertinent History Female Surgical History: Section, Other Other Surgical History: CARPAL TUNNEL, FOOT SURG BILAT, TUBES IN EARS, FALLOPIAN TUBES REMOVED, ABLATION - Social History Smoking Status: Current every day smoker How long have you smoked: 15 yrs Exposure to second hand smoke: Yes Drug Use: none Patient Lives Alone: No - Female History Hx Last Menstrual Period: ablation Hx Now: No - Nursing Vital Signs Nursing Vital Signs: Initial Vital Signs Temperature 98.0 F 06/09/19 03:47 Pulse Rate 84 06/09/19 03:47 Respiratory Rate 19 06/09/19 03:47 Blood Pressure 119/73 06/09/19 03:47 O2 Sat by Pulse Oximetry 100 06/09/19 03:47 Pain Scale Pain Intensity 9 - Physical Exam General Appearance: alert Eyes, Ears, Nose, Throat Exam: moist mucous membranes Neck Exam: non-tender, supple Cardiovascular/Respiratory Exam: chest non-tender, normal breath sounds, regular rate/rhythm, no respiratory distress Gastrointestinal/Abdominal Exam: non-tender, guarding Back Exam: normal inspection, No vertebral tenderness Knees Exam: right knee: bone tenderness, joint effusion, pain, soft tissue tenderness, swelling Neuro/Tendon Exam: normal sensation, normal motor functions Mental Status Exam: alert, oriented x 3, cooperative Skin Exam: normal color, warm, dry SpO2: 100 - Course Nursing assessment & vital signs reviewed: Yes - Radiology Exams Knee X-ray Interpretation: Interpreted by me, Other (X-ray of the right knee show severe osteoarthritic iritis with bone spurs etc. very advanced for this age) Ordered Tests: Active Orders 24 hr Category Date Time Status Crutches STAT Care 06/09/19 04:35 Ordered Immobilizer STAT Care 06/09/19 04:34 Ordered KNEE (3 VIEWS) Stat Exams 06/09/19 Ordered Medication Summary Discontinued Medications Generic Name Dose Route Start Last Admin Trade Name Terrance PRN Reason Stop Dose Admin Ketorolac Tromethamine 60 mg 06/09/19 04:13 06/09/19 04:17 Toradol 30 Mg Injection IM 06/09/19 04:14 60 mg STAT ONE Administration Ketorolac Tromethamine Confirm 06/09/19 04:15 Toradol 30 Mg Injection Administered 06/09/19 04:16 Dose 60 mg .ROUTE .STK-MED ONE - Progress Progress: pain not gone completely - Departure Departure Disposition: Home Clinical Impression: Internal derangement of right knee Condition: Stable Critical Care Time: No Referrals: MARKUS LUJAN [Primary Care Provider] - Instructions: Knee Pain (DC) Additional Instructions: Patient was referred to the [facility] orthopedic clinic
[2019-06-09] MEDS ORDERED: TORAdol 30 mg Injection ONE (04:15)
[2019-06-09 05:44] VITALS: BP 109/62; PULSE 89; O2SAT 98
--- NOTE | 2019-06-09 08:57 | XRAY ---
Indication: Pain. Comparison: None 3 views of the right knee demonstrates mild/moderate tricompartmental degenerative changes greatest patellofemoral compartment. Tiny nonspecific effusion. No other bony, articular, or soft tissue abnormalities.
== END 2019-06-09 05:00 | disposition home or self-care (01) ==
LOC: ED 03:40
DX: M23.91 Unspecified internal derangement of right knee (principal); M25.561 Pain in right knee; X50.0XXA Overexertion from strenuous movement or load, initial encounter; Y93.01 Activity, walking, marching and hiking; Y92.89 Other specified places as the place of occurrence of the external cause; M19.90 Unspecified osteoarthritis, unspecified site
CPT/HCPCS: 73562; 96372; 99284; J1885; L1830

== ENCOUNTER 2020-08-09 14:30 | Day surgery (SDC) | payer OTHER ==
[2012-12-23 10:16] VITALS: BP 127/84
[2020-08-09] MEDS ORDERED: BUPIVACAINE 0.5% VIAL IJ ONE (14:31)
[2020-08-09] MEDS ORDERED: Depo-Medrol 40 MG/ML IM ONE (14:31)
[2020-08-09] MEDS ORDERED: SUBLIMAZE 100 MCG/2 ML ONE (16:02)
[2020-08-09] MEDS ORDERED: DIPRIVAN 200 MG/20 ML IV ONE (16:03)
[2020-08-09] MEDS ORDERED: Lactated Ringers 1,000 ML IV ONE (16:14)
--- NOTE | 2020-08-09 16:43 | XRAY ---
Indication: Right knee injection. Intraoperative fluoroscopy provided for 6 seconds. Single digital spot image submitted for interpretation demonstrates needle tip projecting over the right femur intercondylar notch. Small amount of contrast injected for needle tip placement. Correlate with intraoperative findings/report.
--- NOTE | 2020-08-09 16:43 | XRAY ---
Indication: Left knee injection. Intraoperative fluoroscopy provided for 12 seconds. Single digital spot image submitted for interpretation demonstrates needle tip projecting over the left femur intercondylar notch. Small amount of contrast injected for needle tip placement. Correlate with intraoperative findings/report.
--- NOTE | 2020-08-09 16:48 | XRAY ---
12 seconds fluoroscopy time in surgery for intra-articular injection of the leftt knee.
--- NOTE | 2020-08-09 16:58 | XRAY ---
6 seconds fluoroscopy time in surgery for intra-articular injection of the right knee.
== END 2020-08-09 16:31 | disposition home or self-care (01) ==
LOC: SDC-PAIN 14:30
PROVIDERS: ATTEND Psychiatry & Neurology Pain Medicine
DX: M17.0 Bilateral primary osteoarthritis of knee (principal); J44.9 Chronic obstructive pulmonary disease, unspecified; E78.5 Hyperlipidemia, unspecified; F41.8 Other specified anxiety disorders
CPT/HCPCS: 20610; 73560; 77002; 84703; J1030; J2704; J3010; Q9966

== ENCOUNTER 2021-03-09 08:23 | Day surgery (SDC) | payer OTHER ==
[2012-12-23 10:16] VITALS: BP 127/84
[2021-03-09] MEDS ORDERED: LIDOCAINE HCL 2% 100 MG/5 ML IJ ONE (08:24)
[2021-03-09 09:10] LABS: ALBUMIN 4.1 g/dL (3.5-5.0); ALKALINE PHOSPHATASE 51 U/L (38-126); BLOOD UREA NITROGEN 11 mg/dL (7-17); CHLORIDE 106 mmol/L (98-107); Carbon Dioxide 28 mmol/L (22-30); Cholesterol 171 mg/dL (50-200); Creatinine 1 0.61 mg/dL (0.52-1.04); EST GLOMERULAR FILTRATION RATE > 60.0 ML/MIN; Glucose 94 mg/dL (74-106); HDL CHOLESTEROL 41 mg/dL (40-60); LDL, DIRECT 108 mg/dL (30-100); Potassium 4.1 mmol/L (3.5-5.1); Risk Ratio 4.2; SGOT/AST 28 U/L (14-36); SGPT/ALT 18 U/L (0-35); SODIUM 139 mmol/L (137-145); TRIGLYCERIDE 151 mg/dL (30-150); Total Protein 6.9 g/dL (6.3-8.2)
[2021-03-09] MEDS ORDERED: DIPRIVAN 200 MG/20 ML IV ONE (09:23)
[2021-03-09] MEDS ORDERED: Lactated Ringers 1,000 ML IV ONE (09:52)
--- NOTE | 2021-03-09 10:51 | XRAY ---
Indication: Bilateral L4-S1 MBB. Intraoperative fluoroscopy provided for 14 seconds. Single digital spot image submitted for interpretation demonstrate posterior needle tips projecting over the expected left and right L4-S1 nerve roots. Correlate with intraoperative findings/report.
--- NOTE | 2021-03-09 12:23 | XRAY ---
14 seconds fluoroscopy time in surgery for bilateral L4-S1 MBB.
== END 2021-03-09 09:33 | disposition home or self-care (01) ==
LOC: SDC-PAIN 08:23
PROVIDERS: ATTEND Psychiatry & Neurology Pain Medicine
DX: M47.816 Spondylosis without myelopathy or radiculopathy, lumbar region (principal); J44.9 Chronic obstructive pulmonary disease, unspecified; F41.9 Anxiety disorder, unspecified; F32.9 Major depressive disorder, single episode, unspecified; E78.5 Hyperlipidemia, unspecified; Z79.899 Other long term (current) drug therapy
CPT/HCPCS: 36415; 64493; 64494; 72020; 77002; 80053; 80061; 83721; 84703; J2704

== ENCOUNTER 2021-04-11 08:55 | Day surgery (SDC) | payer OTHER ==
[2012-12-23 10:16] VITALS: BP 127/84
[2021-04-11] MEDS ORDERED: Depo-Medrol 40 MG/ML IM ONE (08:56)
[2021-04-11] MEDS ORDERED: BUPIVACAINE 0.5% VIAL IJ ONE (08:56)
[2021-04-11] MEDS ORDERED: Xylocaine 1% Vial 30 ML PF IJ ONE (08:56)
[2021-04-11] MEDS ORDERED: DIPRIVAN 200 MG/20 ML IV ONE (11:31)
[2021-04-11] MEDS ORDERED: Lactated Ringers 1,000 ML IV ONE (12:26)
--- NOTE | 2021-04-11 12:51 | XRAY ---
Indication: Bilateral L4-S1 MBB. Intraoperative fluoroscopy provided for 18 seconds. Single digital spot image submitted for interpretation demonstrate posterior needle tips projecting over the expected left and right L4-S1 nerve roots. Correlate with intraoperative findings/report.
--- NOTE | 2021-04-11 12:58 | XRAY ---
18 seconds fluoroscopy time in surgery for bilateral L4-S1 MBB.
== END 2021-04-11 12:00 | disposition home or self-care (01) ==
LOC: SDC-PAIN 08:55
PROVIDERS: ATTEND Psychiatry & Neurology Pain Medicine
DX: M47.816 Spondylosis without myelopathy or radiculopathy, lumbar region (principal); J44.9 Chronic obstructive pulmonary disease, unspecified; F41.9 Anxiety disorder, unspecified; F32.9 Major depressive disorder, single episode, unspecified; E78.5 Hyperlipidemia, unspecified; Z79.899 Other long term (current) drug therapy
CPT/HCPCS: 64493; 64494; 72020; 77002; 84703; J1030; J2001; J2704

== ENCOUNTER 2021-05-23 08:57 | Day surgery (SDC) | payer OTHER ==
[2012-12-23 10:16] VITALS: BP 127/84
[2021-05-23] MEDS ORDERED: Depo-Medrol 40 MG/ML IM ONE (08:58)
[2021-05-23] MEDS ORDERED: Xylocaine 1% Vial 30 ML PF IJ ONE (08:58)
[2021-05-23] MEDS ORDERED: BUPIVACAINE 0.5% VIAL IJ ONE (08:58)
[2021-05-23] MEDS ORDERED: DIPRIVAN 200 MG/20 ML IV ONE (10:31)
[2021-05-23] MEDS ORDERED: Xylocaine-Mpf 2% 5 Ml Vial ONE (10:35)
--- NOTE | 2021-05-23 11:49 | XRAY ---
Indication: Right L4-S1 RFA. Intraoperative fluoroscopy was provided for 45 seconds. 3 digital spot image submitted for interpretation demonstrates posterior needle tips projecting over the expected right L4-S1 nerve roots. Correlate with intraoperative findings/report.
--- NOTE | 2021-05-23 12:38 | XRAY ---
45 seconds of fluoroscopy was used in surgery for a right L4-S1 RFA.
[2021-05-23] MEDS ORDERED: Lactated Ringers 1,000 ML IV ONE (13:12)
== END 2021-05-23 11:05 | disposition home or self-care (01) ==
LOC: SDC-PAIN 08:57
PROVIDERS: ATTEND Psychiatry & Neurology Pain Medicine
DX: M47.816 Spondylosis without myelopathy or radiculopathy, lumbar region (principal); Z79.899 Other long term (current) drug therapy
CPT/HCPCS: 64635; 64636; 72100; 77002; 82947; 84703; J1030; J2001; J2704

== ENCOUNTER 2021-05-30 08:55 | Day surgery (SDC) | payer OTHER ==
[2012-12-23 10:16] VITALS: BP 127/84
[2021-05-30] MEDS ORDERED: Xylocaine 1% Vial 30 ML PF IJ ONE (08:56)
[2021-05-30] MEDS ORDERED: Depo-Medrol 40 MG/ML IM ONE (08:56)
[2021-05-30] MEDS ORDERED: BUPIVACAINE 0.5% VIAL IJ ONE (08:56)
[2021-05-30] MEDS ORDERED: DIPRIVAN 200 MG/20 ML IV ONE ×3 (09:59→10:20)
[2021-05-30] MEDS ORDERED: Ketamine HCl 50 MG/ML ONE (10:17)
--- NOTE | 2021-05-30 10:53 | XRAY ---
Indication: Left L4-S1 RFA. Intraoperative fluoroscopy provided for 57 seconds. 5 digital spot image submitted for interpretation demonstrates posterior needle tips projecting over the expected left L4-S1 nerve roots. Correlate with intraoperative findings/report.
--- NOTE | 2021-05-30 11:05 | XRAY ---
57 seconds fluoroscopy time in surgery for left L4-S1 RFA.
[2021-05-30] MEDS ORDERED: Lactated Ringers 1,000 ML IV ONE (11:22)
== END 2021-05-30 10:40 | disposition home or self-care (01) ==
LOC: SDC-PAIN 08:55
PROVIDERS: ATTEND Psychiatry & Neurology Pain Medicine
DX: M47.816 Spondylosis without myelopathy or radiculopathy, lumbar region (principal); Z79.899 Other long term (current) drug therapy
CPT/HCPCS: 64635; 64636; 72100; 77002; 82947; 84703; J1030; J2001; J2704

== ENCOUNTER 2021-07-25 09:31 | Day surgery (SDC) | payer OTHER ==
[2012-12-23 10:16] VITALS: BP 127/84
[2021-07-25] MEDS ORDERED: SYNVISC 16 MG/2 ML SYRINGE IU ONE (09:32)
[2021-07-25] MEDS ORDERED: Lactated Ringers 1,000 ML IV ONE (11:24)
[2021-07-25] MEDS ORDERED: DIPRIVAN 200 MG/20 ML IV ONE ×2 (11:44→11:53)
--- NOTE | 2021-07-25 12:53 | XRAY ---
Indication: Left knee injection. Intraoperative fluoroscopy provided for 3 seconds. Single digital spot image submitted for interpretation demonstrates needle tip projecting over the left femur intercondylar notch. Small amount of contrast injected for needle tip placement. Correlate with intraoperative findings/report.
--- NOTE | 2021-07-25 12:55 | XRAY ---
3 seconds fluoroscopy time in surgery for intra-articular injection of the left knee.
--- NOTE | 2021-07-25 12:55 | XRAY ---
6 seconds fluoroscopy time in surgery for intra-articular injection of the right knee.
== END 2021-07-25 12:13 | disposition home or self-care (01) ==
LOC: SDC-PAIN 09:31
PROVIDERS: ATTEND Psychiatry & Neurology Pain Medicine
DX: M17.0 Bilateral primary osteoarthritis of knee (principal); Z79.899 Other long term (current) drug therapy
CPT/HCPCS: 20610; 73560; 77002; 82947; 84703; J2704; J7325; Q9966

== ENCOUNTER 2021-08-01 09:29 | Day surgery (SDC) | payer OTHER ==
[2012-12-23 10:16] VITALS: BP 127/84
[2021-08-01] MEDS ORDERED: Lactated Ringers 1,000 ML IV ONE (11:24)
[2021-08-01] MEDS ORDERED: DIPRIVAN 200 MG/20 ML IV ONE (12:03)
--- NOTE | 2021-08-01 14:03 | XRAY ---
Indication: Right knee injection. Intraoperative fluoroscopy provided for 8 seconds. Single digital spot imags submitted for interpretation demonstrate needle tip projecting over the right femur intercondylar notch. Small amount of contrast injected for needle tip placement. Correlate with intraoperative findings/report.
--- NOTE | 2021-08-01 14:04 | XRAY ---
Indication: Left knee injection. Intraoperative fluoroscopy provided for 6 seconds. Single digital spot imags submitted for interpretation demonstrate needle tip projecting over the left femur intercondylar notch. Small amount of contrast injected for needle tip placement. Correlate with intraoperative findings/report.
== END 2021-08-01 12:29 | disposition home or self-care (01) ==
LOC: SDC-PAIN 09:29
PROVIDERS: ATTEND Psychiatry & Neurology Pain Medicine
DX: M17.0 Bilateral primary osteoarthritis of knee (principal); Z79.899 Other long term (current) drug therapy
CPT/HCPCS: 73560; 77002; 82947; 84703; J2704

== ENCOUNTER 2021-08-08 09:39 | Day surgery (SDC) | payer OTHER ==
[2012-12-23 10:16] VITALS: BP 127/84
[2021-08-08] MEDS ORDERED: SYNVISC 16 MG/2 ML SYRINGE IU ONE (09:40)
[2021-08-08] MEDS ORDERED: Lactated Ringers 1,000 ML IV ONE (11:16)
[2021-08-08] MEDS ORDERED: DIPRIVAN 200 MG/20 ML IV ONE (11:46)
--- NOTE | 2021-08-08 12:58 | XRAY ---
Indication: Right knee injection Intraoperative fluoroscopy provided for 5 seconds. Single digital spot images submitted for interpretation demonstrates needle tip projecting over the right femur intercondylar notch. Small amount of contrast injected for needle tip placement. Correlate with intraoperative findings/report.
--- NOTE | 2021-08-08 12:58 | XRAY ---
Indication: Left knee injection Intraoperative fluoroscopy provided for 7 seconds. Single digital spot images submitted for interpretation demonstrates needle tip projecting over the left femur intercondylar notch. Small amount of contrast injected for needle tip placement. Correlate with intraoperative findings/report.
--- NOTE | 2021-08-08 13:00 | XRAY ---
7 seconds fluoroscopy time in surgery for intra-articular injection of the left knee.
--- NOTE | 2021-08-08 13:01 | XRAY ---
5 seconds fluoroscopy time in surgery for intra-articular injection of the right knee.
== END 2021-08-08 12:10 | disposition home or self-care (01) ==
LOC: SDC-PAIN 09:39
PROVIDERS: ATTEND Psychiatry & Neurology Pain Medicine
DX: M17.0 Bilateral primary osteoarthritis of knee (principal); E11.9 Type 2 diabetes mellitus without complications; Z79.899 Other long term (current) drug therapy
CPT/HCPCS: 20610; 73560; 77002; 82947; 84703; J2704; J7325; Q9966

== ENCOUNTER 2022-10-09 09:57 | Day surgery (SDC) | payer OTHER ==
[2012-12-23 10:16] VITALS: BP 127/84
[2022-10-09] MEDS ORDERED: Depo-Medrol 40 MG/ML IM ONE (09:58)
[2022-10-09] MEDS ORDERED: BUPIVACAINE 0.5% VIAL IJ ONE (09:58)
[2022-10-09] MEDS ORDERED: LIDOCAINE HCL 1% 50 MG/5 ML VL PF IJ ONE (09:58)
[2022-10-09 10:09] LABS: HCG URINE TEST NEGATIVE (NEGATIVE)
[2022-10-09] MEDS ORDERED: DIPRIVAN 200 MG/20 ML IV ONE ×2 (11:39→11:56)
--- NOTE | 2022-10-09 12:56 | XRAY ---
Indication: Left L4-S1 RFA. Intraoperative fluoroscopy provided for 35 seconds. 5 digital spot image submitted for interpretation demonstrates posterior needle tips projecting over the expected left L4-S1 nerve roots. Correlate with intraoperative findings/report.
--- NOTE | 2022-10-09 13:38 | XRAY ---
35 seconds of fluoroscopy was used in surgery for a left L4-S1 RFA.
[2022-10-09] MEDS ORDERED: Lactated Ringers 1,000 ML IV ONE (15:44)
== END 2022-10-09 12:20 | disposition home or self-care (01) ==
LOC: SDC-PAIN 09:57
PROVIDERS: ATTEND Psychiatry & Neurology Pain Medicine
DX: M47.816 Spondylosis without myelopathy or radiculopathy, lumbar region (principal); Z79.899 Other long term (current) drug therapy
CPT/HCPCS: 64635; 64636; 72100; 77002; 81025; 82947; J1030; J2001; J2704

== ENCOUNTER 2022-10-16 10:34 | Day surgery (SDC) | payer OTHER ==
[2012-12-23 10:16] VITALS: BP 127/84
[~2022-10-16 10:34] MED LIST: Lactated Ringers 1,000 ML IV SCH
[2022-10-16] MEDS ORDERED: Depo-Medrol 40 MG/ML IM ONE (10:35)
[2022-10-16] MEDS ORDERED: D50W 50 ml Abboject IV ONE (10:35)
[2022-10-16] MEDS ORDERED: BUPIVACAINE 0.5% VIAL IJ ONE (10:35)
[2022-10-16] MEDS ORDERED: LIDOCAINE HCL 1% 50 MG/5 ML VL PF IJ ONE (10:35)
[2022-10-16 12:46] LABS: HCG URINE TEST NEGATIVE (NEGATIVE)
[2022-10-16] MEDS ORDERED: DIPRIVAN 200 MG/20 ML IV ONE ×2 (13:15→13:24)
[2022-10-16] MEDS ORDERED: Xylocaine-Mpf 2% 5 Ml Vial ONE (13:18)
--- NOTE | 2022-10-16 14:24 | XRAY ---
Indication: Right L4-S1 RFA. Intraoperative fluoroscopy provided for 23 seconds. 3 digital spot image submitted for interpretation demonstrate posterior needle tips projecting over the expected right L4-S1 nerve roots. Correlate with intraoperative findings/report.
[2022-10-16] MEDS ORDERED: Lactated Ringers 1,000 ML IV ONE (14:44)
--- NOTE | 2022-10-16 15:01 | XRAY ---
23 seconds of fluoroscopy was used in surgery for a right L4-S1 RFA.
== END 2022-10-16 13:50 | disposition home or self-care (01) ==
LOC: SDC-PAIN 10:34
PROVIDERS: ATTEND Psychiatry & Neurology Pain Medicine
DX: M47.816 Spondylosis without myelopathy or radiculopathy, lumbar region (principal); Z79.899 Other long term (current) drug therapy
CPT/HCPCS: 64635; 64636; 72100; 77002; 81025; 82947; J1030; J2001; J2704

== ENCOUNTER 2023-05-07 08:43 | Day surgery (SDC) | payer OTHER ==
[2012-12-23 10:16] VITALS: BP 127/84
[2023-05-07] MEDS ORDERED: Sodium Chloride 0.9(Preservative Free) 10 ML IJ ONE (08:44)
[2023-05-07] MEDS ORDERED: XYLOCAINE-MPF 1% 5ML SDV IJ ONE (08:44)
[2023-05-07] MEDS ORDERED: Depo-Medrol 40 MG/ML IM ONE (08:44)
[2023-05-07 09:03] LABS: HCG URINE TEST NEGATIVE (NEGATIVE)
[2023-05-07] MEDS ORDERED: DIPRIVAN 200 MG/20 ML IV ONE (10:43)
--- NOTE | 2023-05-07 11:31 | XRAY ---
Indication: Lumbar CAROL. Intraoperative fluoroscopy provided for 20 seconds. 2 digital spot images submitted for interpretation demonstrates posterior needle tip projecting posterior to lumbosacral junction interspace roots. Small amount of contrast injected for needle tip placement. Correlate with intraoperative findings/report.
--- NOTE | 2023-05-07 11:34 | XRAY ---
20 seconds of fluoroscopy was used in surgery for a lumbar CAROL.
[2023-05-07] MEDS ORDERED: Lactated Ringers 1,000 ML IV ONE (14:07)
== END 2023-05-07 11:15 | disposition home or self-care (01) ==
LOC: SDC-PAIN 08:43
PROVIDERS: ATTEND Psychiatry & Neurology Pain Medicine
DX: M54.16 Radiculopathy, lumbar region (principal); Z79.899 Other long term (current) drug therapy
CPT/HCPCS: 62323; 72100; 77003; 81025; 82947; J1030; J2704; Q9966

== ENCOUNTER 2023-12-10 09:47 | Day surgery (SDC) | payer OTHER ==
[2012-12-23 10:16] VITALS: BP 127/84
[2023-12-10] MEDS ORDERED: LIDOCAINE HCL 1% 50 MG/5 ML VL PF IJ ONE (09:48)
[2023-12-10] MEDS ORDERED: Depo-Medrol 40 MG/ML IM ONE (09:48)
[2023-12-10] MEDS ORDERED: Sodium Chloride 0.9(Preservative Free) 10 ML IJ ONE (09:48)
[2023-12-10 10:34] LABS: HCG URINE TEST NEGATIVE (NEGATIVE)
[2023-12-10] MEDS ORDERED: DIPRIVAN 200 MG/20 ML IV ONE (11:33)
[2023-12-10] MEDS ORDERED: Lactated Ringers 1,000 ML IV ONE (12:50)
--- NOTE | 2023-12-10 13:59 | XRAY ---
Indication: Lumbar CAROL. Intraoperative fluoroscopy provided for 8 seconds. 3 digital spot image submitted for interpretation demonstrates posterior needle tip projecting posterior to lumbosacral junction interspace. Small amount of contrast injected for needle tip placement. Correlate with intraoperative findings/report.
--- NOTE | 2023-12-10 14:21 | XRAY ---
8 seconds of fluoroscopy was used in surgery for a lumbar CAROL.
== END 2023-12-10 11:57 | disposition home or self-care (01) ==
LOC: SDC-PAIN 09:47
PROVIDERS: ATTEND Psychiatry & Neurology Pain Medicine
DX: M54.16 Radiculopathy, lumbar region (principal); E28.2 Polycystic ovarian syndrome
CPT/HCPCS: 62323; 72100; 77003; 81025; 82947; J2001; J2704; Q9966

== ENCOUNTER 2024-03-10 08:10 | Day surgery (SDC) | payer OTHER ==
[2012-12-23 10:16] VITALS: BP 127/84
[2024-03-10] MEDS ORDERED: Depo-Medrol 40 MG/ML IM ONE (08:11)
[2024-03-10] MEDS ORDERED: LIDOCAINE HCL 1% AMPUL 5 ML IJ ONE (08:11)
[2024-03-10] MEDS ORDERED: BUPIVACAINE 0.5% VIAL IJ ONE (08:11)
[2024-03-10 08:46] LABS: HCG URINE TEST NEGATIVE (NEGATIVE)
[2024-03-10] MEDS ORDERED: DIPRIVAN 200 MG/20 ML IV ONE (09:46)
[2024-03-10] MEDS ORDERED: Xylocaine-Mpf 2% 5 Ml Vial ONE (09:58)
--- NOTE | 2024-03-10 10:25 | XRAY ---
Indication: Right L4-S1 RFA. Intraoperative fluoroscopy provided for 18 seconds. 4 digital spot image submitted for interpretation demonstrates posterior needle tips projecting over the expected right L4-S1 nerve roots. Correlate with intraoperative findings/report.
--- NOTE | 2024-03-10 11:31 | XRAY ---
18 seconds of fluoroscopy was used in surgery for a right L4-S1 RFA.
== END 2024-03-10 10:27 | disposition home or self-care (01) ==
LOC: SDC-PAIN 08:10
PROVIDERS: ATTEND Psychiatry & Neurology Pain Medicine
DX: M47.816 Spondylosis without myelopathy or radiculopathy, lumbar region (principal)
CPT/HCPCS: 64635; 64636; 72100; 77002; 81025; 82947; J2704

== ENCOUNTER 2024-03-17 08:28 | Day surgery (SDC) | payer OTHER ==
[2012-12-23 10:16] VITALS: BP 127/84
[2024-03-17] MEDS ORDERED: LIDOCAINE HCL 1% AMPUL 5 ML IJ ONE ×2 (08:29)
[2024-03-17] MEDS ORDERED: BUPIVACAINE 0.5% VIAL IJ ONE (08:29)
[2024-03-17] MEDS ORDERED: Depo-Medrol 40 MG/ML IM ONE (08:29)
[2024-03-17 09:34] LABS: HCG URINE TEST NEGATIVE (NEGATIVE)
[2024-03-17] MEDS ORDERED: D50W 50 ml Abboject IV ONE ×2 (09:35→09:45)
[2024-03-17] MEDS ORDERED: DIPRIVAN 200 MG/20 ML IV ONE ×2 (10:41→10:47)
--- NOTE | 2024-03-17 13:01 | XRAY ---
Indication: Left L4-S1 RFA. Intraoperative fluoroscopy provided for 21 seconds. 4 digital spot image submitted for interpretation demonstrates posterior needle tips projecting over expected left L4-S1 nerve roots. Correlate with intraoperative findings/report.
--- NOTE | 2024-03-17 13:10 | XRAY ---
21 seconds of fluoroscopy was used in surgery for a left L4-S1 RFA.
== END 2024-03-17 11:30 | disposition home or self-care (01) ==
LOC: SDC-PAIN 08:28
PROVIDERS: ATTEND Psychiatry & Neurology Pain Medicine
DX: M47.817 Spondylosis without myelopathy or radiculopathy, lumbosacral region (principal)
CPT/HCPCS: 64635; 64636; 72100; 77002; 81025; 82947; J2704